=== PATIENT | female | born 1995 | race Caucasian/White ===

== ENCOUNTER 2016-10-22 12:57 | Day surgery (SDC) | payer MEDICAID ==
[~2016-10-22] VITALS: Ht 152.4 cm; Wt 58.0 kg
[2016-10-22] VITALS (15 sets, daily range): BP systolic 91–137; BP diastolic 50–102; PULSE 82–128; RESP 15–45; TEMP 97.7–98.8; O2SAT 92–100; Ht 152.4 cm; Wt 58.0 kg
[~2016-10-22 12:57] MED LIST: LIDOCAINE 1% (10mg/ml) 2ml SDV INJ ONE; LR 1,000 ML IV SCH
[2016-10-22 13:19] LABS: HCT - HEMATOCRIT 41.4 % (36-46); MEAN CORPUSCULAR HGB 31.8 UUG (26-34); MEAN CORPUSCULAR HGB CONC(MCHC 33.8 GM/DL (31-37); MEAN CORPUSCULAR VOLUME 94.1 UM3 (80-100); MEAN PLATELET VOLUME 9.5 UM3 (9.4-12.4); RED BLOOD COUNT 4.4 M/MM3 (4.00-5.20); WBC - WHITE BLOOD COUNT 9.3 T/MM3 (4.5-11.0)
--- NOTE | 2016-10-22 14:26 | ANESPREOP ---
Anesthesia Record Date and Time DATE: 10/22/16 TIME: 14:25 Pre-Op Diagnosis 9 wk missed Proposed Surgical Procedure D&C Allergies: Coded Allergies: No Known Drug Allergies (Verified Allergy, Unknown, 10/22/16) Ht/Wt/BMI Height: 5 ' 0.00 " Weight: 58.000 kg BMI: 25.0 kg/m2 Vital Signs Date Time Temp Pulse Resp B/P Pulse Ox O2 Delivery O2 Flow Rate FiO2 10/22/16 13:08 98.8 128 20 137/102 94 Room Air Medications Inpatient Medications Current Medications Medications (Trade) Dose Ordered Sig/Gilberto Start Time Stop Time Status Last Admin Dose Admin Lactated Ringer's (Lactated Ringers) 1,000 ml @ 125 mls/hr Q8H 10/22/16 12:00 10/22/16 13:40 125 MLS/HR Currently on Beta Elen: No Medical/Surgical History Anesthesia PMH: Denies: *Diabetes, Anesthesia Reactions, Arthritis, CVA/Stroke/ TIA, Cancer, Clotting Problems, Malignant Hyperthermia, Renal Disease, Seizures , Sleep Apnea, Thyroid Disease Smoking Status: Never smoker Has pt. smoked today?: No Use Chewing Tobacco?: No Second Hand Exposure: No Substance Use Type: does not use Alcohol Intake: none Past Surgical History Orthopedic Surgeries: Abdominal Surgeries: Genitourinary Surgeries: Cardiac Surgeries: Endocrine Surgeries: Reproductive Surgeries: Neurological Surgeries: Ear Surgeries: Nose Surgeries: Throat Surgeries: Other Surgeries: Anesthesia Adverse Reactions: FOUND none Family Hx of Anesthesia Advers: none Hx of Motion Sickness: No Pertinent Findings Laboratory Tests 10/22/16 13:12 EKG Rhythm: Sinus Rhythm Physical Exam Respiratory: Lungs clear Cardiovascular: FOUND Regular rate, rhythm, FOUND No murmur Airway Assessment Mallampati Score: I TMD: 3 Fingerbreadths Neck Extension: Good Teeth: Chipped Teeth/Crowns Overall Assessment: No Airway Concerns ASA: 1 Plan Anesthesia Plan: TIVA, LMA Discussion Discussed risks/options/alternatives of anesthesia and questions answered. Patient consents. Nursing pain assessment noted. Present: Friend Attestation Statement Prior to the delivery of any anesthetic medication, I examined the patient, developed the plan, obtained the patient's consent and discussed the risk and benefits of the procedure with the patient/guardian. JÚNIOR TENA CRNA Oct 22, 2016 14:26
[2016-10-22] MEDS ORDERED: MIDAZOLAM 2mg/2ml INJECTION ONE (14:34)
[2016-10-22] MEDS ORDERED: FENTANYL 100mcg/2ml INJECTION ONE ×2 (14:35→15:46)
[2016-10-22] MEDS ORDERED: PROPOFOL 200mg 20 ML IV ONE (14:36)
[2016-10-22] MEDS ORDERED: PROPOFOL 500mg 50 ML IV ONE (14:36)
[2016-10-22] MEDS ORDERED: ROCURONIUM 50mg/5ml INJECTION IV ONE (15:47)
[2016-10-22] MEDS ORDERED: SUGAMMADEX 200 MG/2 ML INJECTION IV ONE (15:53)
--- NOTE | 2016-10-22 16:08 | GYNOPNOTE1 ---
LOADING [employer] Postoperative Note Date of Operation: 10/22/16 Preoperative Diagnosis: Missed Postoperative Diagnosis: Same as Preoperative Procedure: Suction D&C Surgeon: Trevon Lopez MD Anesthesia Provider: Travon Yuan CRNA Anesthesia Type: TIVA Estimated Blood Loss: 20cc TREVON LOEPZ MD Oct 22, 2016 16:08
[2016-10-22] MEDS ORDERED: IBUPROFEN 200 MG TABLET PO PRN (16:15)
[2016-10-22] MEDS ORDERED: HYDROCODONE/APAP 5 mg/325 mg TABLET PO PRN (16:15)
[2016-10-22] MEDS ORDERED: ONDANSETRON 4mg/2ml INJECTION IV PRN (16:15)
[2016-10-22] MEDS ORDERED: MORPHINE SULFATE 4 MG SYRINGE IV PRN (16:15)
[2016-10-22] MEDS ORDERED: METOCLOPRAMIDE 10mg/2ml INJECTION IV PRN (16:15)
[2016-10-22] MEDS ORDERED: HYDROMORPHONE 2mg/ml INJECTION IV PRN ×2 (16:15→16:30)
--- NOTE | 2016-10-22 21:01 | OPNOTEF ---
DATE OF SURGERY: 10/22/2016 PREOPERATIVE DIAGNOSIS: 21-year-old female, G2, P1, with 8-1/2 weeks Missed AB. POSTOPERATIVE DIAGNOSIS: same PROCEDURE: Suction D&C. EBL: 20 mL ANESTHESIA: TIVA by Travon Yuan CRNA. SURGEON: Trevon Shook MD COMPLICATIONS: None. DESCRIPTION OF PROCEDURE In the preop area, questions were again answered to her and her 's satisfaction. Her asked if we would look again by sonogram, so I went to the [facility]Child [facility] and brought the sonogram back and we looked again. There is still no heart tones. We reviewed the previous sonogram from two days ago in which case she should have been 13-1/2 weeks, and she measured 8.5 weeks. Maternal blood type is Rh positive. After adequate TIVA anesthesia, the patient was prepped and draped in the low lithotomy position. A heavy weighted speculum was placed posteriorly, and an anterior retractor was used to visualize the cervix which was grasped at the 12 o'clock position with an Allis clamp. The cervix was dilated to a 25 Fang and a #8 curved suction curette was introduced, and the endometrial cavity was curettaged with the suction. [id number] amount of tissue was obtained. Then a sharp curette was introduced and the uterine cavity was scraped to ensure we got all the tissue and then additional suction pass was made. Things were hemostatic and all instruments were removed from the vaginal tract, and the patient went to recovery room in stable condition. MYAH
== END 2016-10-22 17:48 | disposition home or self-care (01) ==
LOC: SCU 12:57
PROVIDERS: ATTEND Obstetrics & Gynecology
DX: O02.1 Missed abortion (principal)
CPT/HCPCS: 36415; 59820; 85027; J2250; J2704; J3010; J7120